=== PATIENT | female | born 1975 | race Caucasian/White ===

== ENCOUNTER 2023-03-07 19:28 | Emergency (ER) | payer OTHER, SELFPAY ==
--- NOTE | ~2023-03-07 | XR_ITS ---
EXAMINATION: XR FOOT, LEFT CLINICAL INFORMATION: Great toe and second toe pain COMPARISON: None available. TECHNIQUE: AP, lateral, and oblique views of the left foot. FINDINGS: There is no fracture or dislocation. Alignment maintained throughout the foot. The soft tissues are unremarkable. Chronic healed fifth metatarsal fracture. Achilles heel spur noted. XR/XR foot LT min 3V IMPRESSION: No acute fracture or malalignment. Chronic healed fifth metatarsal fracture.
[2023-03-07 20:35] VITALS: BP 147/98; PULSE 105; RESP 20; TEMP 36.3; O2SAT 97; BMI 23.0
--- NOTE | 2023-03-07 20:37 | ED.LOWEXIN ---
HPI - Extremity Injury (Lower) General Chief Complaint: Extremity Injury, Lower <TARA Hart - Last Filed: 03/07/23 20:40> Stated Complaint: ?L Foot infection <TARA Hart - Last Filed: 03/07/23 20:40> Time Seen by Provider: 03/07/23 23:49 <TARA Hart - Last Filed: 03/07/23 20:40> Source: patient, RN notes reviewed and old records reviewed <Marlon Alvarez - Last Filed: 03/08/23 00:16> Mode of arrival: ambulatory <Marlon Alvarez - Last Filed: 03/08/23 00:16> Limitations: no limitations <Marlon Alvarez - Last Filed: 03/08/23 00:16> History of Present Illness HPI Narrative: 48-year-old female with past medical history significant for liver cirrhosis presents for evaluation of left foot pain Patient reports that 1 week ago she got a pedicure and ?they were digging around my nail and cut the big toe. She reports that she initially had some pain around the nail bed which progressed towards the foot She states the pain by the nail bed has somewhat improved now she is having pain mostly in the foot in between the 1st and 2nd toes on the right side Denies any fevers or chills. The patient is not a diabetic <Marlon Alvarez - Last Filed: 03/08/23 00:16> Related Data Home Medications: Previous Rx's Medication Instructions Recorded cephalexin 500 mg capsule 500 mg PO TID #21 caps 03/08/23 tramadol 50 mg tablet 50 mg PO TID PRN severe pain 03/08/23 (scale score 7-10) #12 tabs <TARA Hart - Last Filed: 03/07/23 20:40> Allergies/Adverse Reactions: Allergies Allergy/AdvReac Type Severity Reaction Status Date / Time No Known Allergies Allergy Unverified 07/27/20 15:51 <TARA Hart Last Filed: 03/07/23 20:40> Review of Systems Constitutional: Constitutional: Denies chills and Denies fever(s) <Marlon Alvarez - Last Filed: 03/08/23 00:16> Musculoskeletal: Musculoskeletal: Reports arthralgias and Reports joint swelling <Marlon Chay - Last Filed: 03/08/23 00:16> Integumentary/Breasts: Skin/Breast: Denies rash <Marlon VangOglethorpe - Last Filed: 03/08/23 00:16> Physical Exam Vital Signs: Vital Signs: Last Vital Signs Temp 97.4 F 03/07/23 20:35 Pulse 105 H 03/07/23 20:35 Resp 20 03/07/23 20:35 BP 147/98 H 03/07/23 20:35 Pulse Ox 97 03/07/23 20:35 O2 Del Method Room Air 03/07/23 20:35 BMI result Body Mass Index 23.0 <TARA Hart - Last Filed: 03/07/23 20:40> Vital Signs: Last Vital Signs Temp 97.4 F 03/07/23 20:35 Pulse 105 H 03/07/23 20:35 Resp 20 03/07/23 20:35 BP 147/98 H 03/07/23 20:35 Pulse Ox 97 03/07/23 20:35 O2 Del Method Room Air 03/07/23 20:35 BMI result Body Mass Index 23.0 <Marlon Chay - Last Filed: 03/08/23 00:16> Const: General: healthy appearing, comfortable, no acute distress, alert and awake <Marlon Chay - Last Filed: 03/08/23 00:16> Nutritional Appearance: well nourished <Marlon OOglethorpe - Last Filed: 03/08/23 00:16> Orientation/consciousness: patient oriented x3 <Marlon O - Last Filed: 03/08/23 00:16> Eyes: Eyelids: Yes eyelids normal <Marlon OOglethorpe - Last Filed: 03/08/23 00:16> Conjunctivae: conjunctivae normal <Marlon OSchuyler - Last Filed: 03/08/23 00:16> Sclerae: sclerae normal <Marlon Vang - Last Filed: 03/08/23 00:16> Corneas: corneas normal <Marlon VangOglethorpe - Last Filed: 03/08/23 00:16> Pupils: Equal, round and reactive pupils present <Marlon Chay - Last Filed: 03/08/23 00:16> EOM: EOMs intact bilaterally <Marlon OOglethorpe - Last Filed: 03/08/23 00:16> Resp: Effort & Inspection: normal respiratory effort, able to speak in complete sentences and not labored <Marlon OOglethorpe - Last Filed: 03/08/23 00:16> Skin: General skin exam: no rashes or lesions noted and elasticity normal <Marlon OOglethorpe - Last Filed: 03/08/23 00:16> Neuro: General: patient oriented x3 <Marlon O Last Filed: 03/08/23 00:16> Cranial nerves: Yes CN's II-XII intact bilaterally, Yes Equal, round and reactive pupils present and Yes Bilaterally intact EOM present <Marlon OOglethorpe - Last Filed: 03/08/23 00:16> Cognition (Neuro): normal cognition <Marlon OOglethorpe - Last Filed: 03/08/23 00:16> Extrem: Other: Patient has mild erythema to the lateral side of the right 1st toe. There is some tenderness extending proximally without significant edema. No lacerations, open wounds <Marlon VangSchuyler - Last Filed: 03/08/23 00:16> Course Course Course Narrative: RME: 48 yo F w/no sig PMHx c/o L great toe & 2nd toe pain radiating to foot s/p aggressive pedicure 1 week ago. +swelling & ttp to distal L foot. Toes nontender. NV intact. No erythema/warmth X-rays ordered Full HPI, ROS and PE to be performed by primary ED provider. <TARA Hart - Last Filed: 03/07/23 20:40> Medical Decision Making Medical Decision Making MDM Narrative: For 8-year-old female presents for evaluation of left foot pain after a pedicure a week ago. She has mild erythema and tenderness without significant edema or evidence of paronychia. X-rays negative for fracture. Will treat with cephalexin for 7 days and tramadol. The patient reports she cannot take ibuprofen or Tylenol <Marlongreer Alvarez - Last Filed: 03/08/23 00:16> Differential Diagnosis Cellulitis Paronychia Foot pain Foot fracture <Marlon Alvarez - Last Filed: 03/08/23 00:16> Discharge Plan Discharge Clinical Impression: Acute pain of left foot <TARA Hart - Last Filed: 03/07/23 20:40> Patient Disposition: Home, Self-Care <TARA Hart - Last Filed: 03/07/23 20:40> Instructions: Cellulitis (ED) <TARA Hart - Last Filed: 03/07/23 20:40> Additional Instructions: Your x-rays did not show any evidence of fracture Your pain is most likely related to a developing skin infection from the pedicure For this reason take cephalexin 3 times daily for the next 7 days You may also use warm compresses and warm water soaks You may use tramadol for severe or breakthrough pain This may make you sleepy, did not drink alcohol or drive after taking <TARA Hart - Last Filed: 03/07/23 20:40> Prescriptions: New cephalexin 500 mg capsule 500 mg PO TID Qty: 21 0RF tramadol 50 mg tablet 50 mg PO TID PRN (Reason: severe pain (scale score 7-10)) Qty: 12 0RF <TARA Hart - Last Filed: 03/07/23 20:40>
== END 2023-03-08 00:29 | disposition home or self-care (01) ==
PROVIDERS: Emergency Provider Emergency Medicine; PCP Internal Medicine
DX: M79.672 Pain in left foot (principal)
CPT/HCPCS: 73630; 99282; 99283

== ENCOUNTER 2023-03-27 12:28 | Emergency (ER) | payer OTHER, SELFPAY ==
--- NOTE | ~2023-03-27 | XR_ITS ---
EXAMINATION: XR FOOT, LEFT CLINICAL INFORMATION: Pain. COMPARISON: None available. TECHNIQUE: AP, lateral, and oblique views of the left foot. FINDINGS: There is a old healed fracture mid second metatarsal with callus formation and periosteal thickening. No acute fracture, dislocation subluxation seen. The soft tissues are normal. The ankle mortise and subtalar joints are normal. Moderate size retrocalcaneal enthesophyte. XR/XR foot LT 2V IMPRESSION: Healing fracture second metatarsal midsegment. Moderate size retrocalcaneal enthesophyte.
--- NOTE | ~2023-03-27 | US_ITS ---
EXAMINATION: US VENOUS ULTRASOUND WITH DOPPLER LOWER EXTREMITY, LEFT CLINICAL INFORMATION: Left lower extremity pain. Assess for occult DVT. COMPARISON: None available. TECHNIQUE: Ultrasound of the deep veins is performed from the hip to the calf with compression sonography and color and pulse Doppler assessment. Spectral analysis with color-flow imaging is performed. FINDINGS: There is normal venous compression and respiratory variation and augmented flow. The visualized common femoral vein, superficial femoral vein, profunda femoral vein, popliteal vein, and the trifurcation region shows no evidence of deep venous thrombosis. Peroneal vein not visualized. No visible thrombus. No popliteal fossa cyst. US/US venous duplex LE LT IMPRESSION: -No DVT demonstrated in the left lower extremity. -If patient's symptoms persist, followup ultrasound in 5 days 7 days might be of value to exclude proximal propagation from non-visualized calf vein.
[2023-03-27 12:38] VITALS: BP 112/77; PULSE 78; RESP 20; TEMP 36.9; O2SAT 98; BMI 25.0
--- NOTE | 2023-03-27 12:38 | ED.GENADULT ---
HPI - General Adult General Chief complaint: Skin/Abscess/Foreign Body Stated complaint: cellulitis Time Seen by Provider: 03/27/23 14:01 Source: patient Mode of arrival: ambulatory Limitations: no limitations History of Present Illness HPI narrative: A 48-year-old female came in for evaluation of left foot pain for 3 weeks. Pain started about 3 weeks ago after having a pedicure work done on the left foot, patient had a multiple ED and clinic visits for treating cellulitis started with 7 days course of Keflex when pain persist patient was evaluated by [facility] ED and was discharged on doxycycline and cefuroxime, patient declined any history of IV abuse, no recent travel, no recent trauma to the foot except for recent foot pedicure. No fever, no chills just pain to the top of the left foot. Related Data Previous Rx's Medication Instructions Recorded cephalexin 500 mg capsule 500 mg PO TID #21 caps 03/08/23 tramadol 50 mg tablet 50 mg PO TID PRN severe pain 03/08/23 (scale score 7-10) #12 tabs hydromorphone 2 mg tablet 2 mg PO Q4H PRN pain #14 tabs 03/27/23 Allergies Allergy/AdvReac Type Severity Reaction Status Date / Time No Known Allergies Allergy Unverified 07/27/20 15:51 Review of Systems Review of Systems: All other systems are reviewed and are negative Constitutional: Reports as per HPI and Reports no additional constitutional complaints Eyes: Reports as per HPI and Reports no additional eye complaints Reports system reviewed and no additional complaints, except as documented Cardiovascular: Reports as per HPI and Reports no additional cardiovascular complaints Respiratory: Reports as per HPI and Reports no additional respiratory complaints Gastrointestinal: Reports as per HPI and Reports no additional gastrointestinal complaints Genitourinary: Reports no additional female genitourinary complaints Musculoskeletal: Reports no additional musculoskeletal complaints Skin/Breast: Reports system reviewed and no additional complaints, except as docu Psychiatric: Reports no additional psychiatric complaints Endocrine: Reports no additional endocrine complaints Hematologic/Lymphatic: Reports no additional hematologic/lymphatic complaints Allergic/Immunologic: Reports no additional allergic/immunologic complaints Reports system reviewed and no additional complaints, except as documented and Reports Abnormal speech present [facility] Social History Social History Alcohol intake: current Alcohol intake frequency: holidays/special occasions only Smoked in Last 30 Days: No Use of substances other than those prescribed or required for medical reasons: No Advance Directives: No Advance Directives Information Provided: Yes Physical Exam ED Vital Signs: Vital Signs - 24 hr 03/27/23 12:38 03/27/23 13:59 Temperature 98.5 F 97.9 F Pulse Rate 78 77 Respiratory Rate 20 16 Blood Pressure 112/77 116/72 Pulse Oximetry 98 99 Oxygen Delivery Method Room Air Room Air BMI result Body Mass Index 25.0 Vital signs have been reviewed as appeared to be correct. Blood pressure normal. Heart rate normal. Respiration rate normal. Temperature normal. Oxygen saturation normal. Appearance: Alert. Oriented X3. No acute distress. Head: Normal external exam. Normocephalic. Atraumatic. No Alexis signs noted. No raccoon eyes noted Eyes: PERRLA. EOMI. Conjunctiva and sclera normal. Eyelids normal. ENT: TM's Normal. Pharynx normal. Uvula midline. Moist mucous membranes. No trismus noted. No drooling noted. No muffled voice noted. Neck: Normal inspection. Neck supple. FROM. No adenopathy. Thyroid Normal. No meningeal signs. No neck mass noted. CVS: Normal heart rate and rhythm. Heart sound normal. No murmurs noted. Pulses normal throughout. Respiratory: No respiratory distress. Painless inspiration. Breath sounds normal. No wheezes/rales/rhonchi noted. Chest nontender. No accessory muscle usage noted or decreased air movement noted. Abdomen: Soft and nontender. Bowel sounds normal in all 4 quadrants. No distention noted. No organomegaly noted. No visible injury noted. Back: No CVA tenderness. Full range of motion noted. Skin: Skin warm and dry. Normal skin color. Normal skin turgor. No rashes/lesions/lacerations noted. Extremities: Left foot exam: No deformity, no step-off, no redness, no hotness, very sensitive to touch on the dorsum of the midfoot, left PT/DP pulse intact, rest of neurovascular exam is intact. Neuro: Oriented X 3. Cranial nerve exam: II-XII are grossly intact No motor deficit. No sensory deficit. Reflexes normal. Course Course Course Narrative: This is an RME: Additional HPI, ROS, PE not included below will be deferred to primary provider. 48 year old female presents w/ worsening l foot cellulitis despite two rounds of antibiotics. First round she took cephalexin, then was prescribed doxycyline with sonething else. Despite this cellulitis worsening. Plan- labs Reevaluation(s) Reevaluation #1: Patient is complaining of burning sensation to 3 x 5 cm area on the dorsum of the left foot at the bases of the toes, patient was given oxycodone in the emergency department and she was taking gabapentin with no relief, patient has no concerns of cellulitis especially with normal WBCs and the nature of the pain is burning sensation more like peripheral neuropathy, patient got good relief from Dilaudid will discharge home with Dilaudid and follow-up with neurology. Time: 16:56 Medications Administered Discontinued Medications Generic Name Dose Route Start Last Admin Trade Name Freq PRN Reason Stop Dose Admin Gabapentin 900 mg 03/27/23 16:05 03/27/23 16:17 Gabapentin 300 Mg Capsule PO 03/27/23 16:06 Not Given ONCE ONE Oxycodone HCl 10 mg 03/27/23 14:08 03/27/23 14:40 Oxycodone Hcl Immed Release 5 Mg Tablet PO 03/27/23 14:09 10 mg ONCE ONE Administration Medical Decision Making Differential Diagnosis Differential Diagnoses: The differential diagnosis associated with the presentation includes (Left foot fracture, left foot cellulitis, left lower extremities DVT, severe anemia, electrolyte abnormalities.) Admission/Observation Consideration of admission/observation: Escalation of care including admission/observation considered Lab Data MDM Lab Attestation statement: I reviewed the patient's lab results. 03/27/23 12:57 03/27/23 12:57 Labs: Lab Results 03/27/23 03/27/23 Range/Units 12:57 12:57 WBC 7.1 (4.8-10.8) X10*3/uL RBC 4.38 (4.20-5.50) X10*6/uL Hgb 11.1 L (12.0-16.0) g/dl Hct 35.8 L (37.0-47.0) % MCV 81.7 (80.0-98.0) fL MCH 25.3 L (27.0-33.0) pg MCHC 31.0 (31.0-35.0) g/dl RDW 17.3 H (11.0-16.0) % Plt Count 161 (160-400) X10*3/uL MPV 10.0 (9.4-12.3) fL Immature Gran % (Auto) 0.1 (0.0-0.4) % Neut % (Auto) 52.3 (45-73) % Lymph % (Auto) 35.3 (20-40) % Potter % (Auto) 8.9 (2-11) % Eos % (Auto) 2.3 (0-4) % Baso % (Auto) 1.1 (0-2) % Lymph # (Auto) 2.5 (1.2-4.9) X10*3/uL Potter # (Auto) 0.6 (0.1-1.2) X10*3/uL Eos # (Auto) 0.2 (0.0-0.4) X10*3/uL Baso # (Auto) 0.1 (0.0-0.2) X10*3/uL Abs Immat Gran (auto) 0.01 (0.00-0.03) X10*3/uL Absolute Neuts (auto) 3.7 (2.0-8.3) x10*3/uL Absolute Nucleated RBC 0.000 (0.0-0.012) X10*3/uL Nucleated RBC % (auto) 0.0 (0.0-0.2) /100WBC Sodium 140 (135-145) mmol/L Potassium 4.1 (3.3-5.1) mmol/L Chloride 105 (96-108) mmol/L Carbon Dioxide 23 (22-29) mmol/L Anion Gap 16 (12-20) BUN 13 (9-16) mg/dL Creatinine 1.00 (0.5-1.4) mg/dL Estim Creat Clear Calc 61.2 Estimated GFR 59 Random Glucose 81 (60-115) mg/dL Calcium 9.2 (8.4-10.2) mg/dL Magnesium 1.7 (1.6-2.6) mg/dL Total Bilirubin 0.3 (0.0-1.0) mg/dL AST 37 H (5-31) U/L ALT 23 (0-31) U/L Alkaline Phosphatase 186 H (39-117) U/L Total Protein 7.3 (6.5-8.0) g/dL Albumin 4.0 (3.5-5.0) g/dL Beta HCG, Quant < 2 mIU/mL Independent Interpretation I performed an independent interpretation of an: Plain X-Ray (Left foot: No acute fracture or dislocation.) and Ultrasound (Left lower extremities ultrasound: No DVT.) Radiology Impression Discussion of test interpretation with radiology: I have reviewed the radiologist's reading. Discharge Plan Discharge Clinical Impression: Peripheral neuropathy Patient Disposition: Home, Self-Care Instructions: Peripheral Neuropathy (ED) Prescriptions: New hydromorphone 2 mg tablet 2 mg PO Q4H PRN (Reason: pain) Qty: 14 0RF Rx Instructions: Partial Fill upon patient request. No Action cephalexin 500 mg capsule 500 mg PO TID Qty: 21 0RF tramadol 50 mg tablet 50 mg PO TID PRN (Reason: severe pain (scale score 7-10)) Qty: 12 0RF Referrals: Veda Marcano MD [Physician] - Theresa Nichols MD [Primary Care Provider] - Stand Alone Forms: Work/School Release
[2023-03-27 13:03] LABS: MANUAL DIFF FLAG NO
[2023-03-27 13:05] LABS: Basophils Absolute Auto 0.1 X10*3/uL (0.0-0.2); Basophils Percent Auto 1.1 % (0-2); Eosinophils Absolute Auto 0.2 X10*3/uL (0.0-0.4); Eosinophils Percent Auto 2.3 % (0-4); Hematocrit 35.8 % (37.0-47.0); Hemoglobin 11.1 g/dl (12.0-16.0); Imm Gran Abs Auto 0.01 X10*3/uL (0.00-0.03); Imm Gran Pct Auto 0.1 % (0.0-0.4); Lymphocytes Absolute Auto 2.5 X10*3/uL (1.2-4.9); Lymphocytes Percent Auto 35.3 % (20-40); Mean Corpuscular Hemoglobin 25.3 pg (27.0-33.0); Mean Corpuscular Volume 81.7 fL (80.0-98.0); Monocytes Absolute Auto 0.6 X10*3/uL (0.1-1.2); Monocytes Percent Auto 8.9 % (2-11); Neutrophils Absolute Auto 3.7 x10*3/uL (2.0-8.3); Neutrophils Percent Auto 52.3 % (45-73); Platelet Count 161 X10*3/uL (160-400); Red Blood Count 4.38 X10*6/uL (4.20-5.50); Red Cell Distribution Width 17.3 % (11.0-16.0); White Blood Count 7.1 X10*3/uL (4.8-10.8)
[2023-03-27 13:21] LABS: Alanine Aminotransferase 23 U/L (0-31); Alkaline Phosphatase 186 U/L (39-117); Anion Gap 16 (12-20); Aspartate Amino Transferase 37 U/L (5-31); Bilirubin Total 0.3 mg/dL (0.0-1.0); Blood Urea Nitrogen 13 mg/dL (9-16); Calcium 9.2 mg/dL (8.4-10.2); Carbon Dioxide 23 mmol/L (22-29); Chloride 105 mmol/L (96-108); Creatinine Clr Calc Pharmacy 61.2; Estimated Glomerular Filt Rate 59; Glucose Random 81 mg/dL (60-115); Magnesium 1.7 mg/dL (1.6-2.6); Potassium 4.1 mmol/L (3.3-5.1); Sodium 140 mmol/L (135-145); Total Protein 7.3 g/dL (6.5-8.0)
[2023-03-27 13:59] VITALS: BP 116/72; PULSE 77; RESP 16; TEMP 36.6; O2SAT 99
[2023-03-27 14:13] LABS: HCG Quantitative < 2 mIU/mL
[2023-03-27] MEDS: oxyCODONE HCl Immed Release 5 MG TABLET 10 MG PO (14:40)
--- NOTE | 2023-03-27 15:06 | PC.NURSE ---
Report received from RIVERA Low Pt is resting comfortably with family member at bedside, reporting no pain at this time. Provided with [place] per pt request
[2023-03-27] MEDS: Ketorolac Tromethamine 30 MG/ML VIAL IM (17:00)
[2023-03-27] MEDS: HYDROmorphone HCl 2 MG/ML VIAL IM (17:01)
== END 2023-03-27 17:56 | disposition home or self-care (01) ==
PROVIDERS: Physician Assistant; Emergency Provider Emergency Medicine; PCP Internal Medicine
DX: G62.9 Polyneuropathy, unspecified (principal); M79.672 Pain in left foot
CPT/HCPCS: 36415; 73620; 80053; 83735; 84702; 85025; 93971; 96372; 99284; J1170; J1885

== ENCOUNTER 2023-06-08 16:14 | Emergency (ER) | payer OTHER, SELFPAY ==
--- NOTE | ~2023-06-08 | XR_ITS ---
EXAMINATION: XR ribs LT min 3V w CXR1V CLINICAL INFORMATION: Reason for Exam fall, pain COMPARISON: Chest radiograph 10/13/2017 TECHNIQUE: 3 views of the Left ribs. 1 view of the chest. FINDINGS: Cervical fusion hardware. Right upper quadrant cholecystectomy clips. Subtle irregularity of the posterior ninth rib and anterior seventh left ribs, equivocal subtle nondisplaced fractures, recommend correlation with point tenderness. Clear lungs. No pneumothorax. No pleural effusion. Normal cardiomediastinal silhouette. XR/XR ribs LT min 3V w CXR1V IMPRESSION: 1. Subtle irregularity of the posterior ninth rib and anterior seventh left ribs, equivocal subtle nondisplaced fractures, recommend correlation with point tenderness. 2. Clear lungs. No pneumothorax.
--- NOTE | 2023-06-08 16:18 | ED.FALL ---
HPI - Fall General Chief Complaint: Extremity Injury, Upper Stated Complaint: fell on rocks/hurt back Time Seen by Provider: 06/08/23 16:48 Source: patient and RN notes reviewed Mode of arrival: ambulatory Limitations: no limitations History of Present Illness HPI Narrative: This is a 48-year-old female presenting to the emergency department for evaluation of left rib pain since today. Patient reports that she was walking on rocks and she tripped and fell on her left side. She denies hitting her head or loss of consciousness. She has had severe left-sided rib pain since the fall. Denies dizziness, blurred vision, headaches, weakness. She states pain worsening with deep inspiration and with palpation over her left ribs. She has a history of multiple pneumothoraces and rib fractures. She denies taking any medications at home to treat her current symptoms. No other complaints or concerns at this time. complaint: fall Onset (ago): hour(s) Fall from: standing Fall witnessed: yes, by family Place fall occurred: street Loss of consciousness: none Prolonged down time: no Symptoms prior to fall: none Context: tripped/slipped Severity: moderate Quality: sharp Associated symptoms (after fall): denies Related Data Previous Rx's Medication Instructions Recorded cephalexin 500 mg capsule 500 mg PO TID #21 caps 03/08/23 tramadol 50 mg tablet 50 mg PO TID PRN severe pain 03/08/23 (scale score 7-10) #12 tabs hydromorphone 2 mg tablet 2 mg PO Q4H PRN pain #14 tabs 03/27/23 acetaminophen 325 mg capsule 650 mg PO Q6H PRN pain #45 caps 06/08/23 (Tylenol) ibuprofen 600 mg tablet 600 mg PO Q6H PRN pain #45 tabs 06/08/23 oxycodone 5 mg tablet 5 mg PO Q6H PRN pain #7 tabs 06/08/23 Allergies Allergy/AdvReac Type Severity Reaction Status Date / Time No Known Allergies Allergy Verified 06/08/23 16:18 Review of Systems Review of Systems: Yes all other systems are reviewed and are negative Constitutional: Constitutional: Reports as per [facility] Social History Social History Alcohol intake: current Alcohol intake frequency: holidays/special occasions only Advance Directives: No Advance Directives Information Provided: Yes Physical Exam Vital Signs: Vital Signs: Last Vital Signs Temp 98 F 06/08/23 18:53 Pulse 70 06/08/23 18:53 Resp 18 06/08/23 18:53 BP 129/68 06/08/23 18:53 Pulse Ox 99 06/08/23 18:53 O2 Del Method Room Air 06/08/23 18:53 BMI result Body Mass Index 29.0 Const: Other: Patient nontoxic appearing however appears uncomfortable, grabbing at left side. General: cooperative Orientation/consciousness: patient oriented x3 Limitations: no limitations HEENT: Head: Yes normal to inspection, Yes normocephalic and Yes atraumatic Ears: hearing grossly normal bilaterally General nose exam: Normal external nose present Face and sinus: Yes normal facial exam Mouth: Normal oral and palatal mucosa present, oropharynx normal and moist mucous membranes Throat: Yes posterior oropharynx normal Eyes: General: appearance normal, both eyes and all related structures Eyelids: Yes eyelids normal Conjunctivae: conjunctivae normal Sclerae: sclerae normal Pupils: Equal, round and reactive pupils present EOM: EOMs intact bilaterally Neck: Other: No midline cervical spine tenderness to palpation. No midline lumbar or thoracic spine tenderness. Neck: Yes normal visual inspection, Yes full ROM and Yes no lymphadenopathy Lymphatic: no lymphadenopathy noted Chest: Other: Tenderness to palpation along the left anterior and posterior chest wall. Chest palpation & inspection: normal inspection of the chest Resp: Effort & Inspection: normal respiratory effort and able to speak in complete sentences Auscultation: clear to auscultation bilaterally, no crackles, no rales, no rhonchi and no wheezes Cardio: Rate: regular rate Rhythm: regular rhythm Heart sounds: S1 normal heart sound present and S2 normal heart sound present GI: Other: Abdomen is soft, nontender, nondistended, no ecchymosis seen. Inspection: Yes normal to inspection Skin: General skin exam: no rashes or lesions noted Trauma: no lacerations or abrasions Wounds: no wounds Neuro: General: patient oriented x3 and moves all extremities Cranial nerves: Yes Equal, round and reactive pupils present Extrem: Other: Left shoulder without any point tenderness to palpation. No step-off or deformity. Patient has the ingestion of the left shoulder. Radial pulses 2+ General: Yes normal to inspection Right upper extremity: normal to inspection Left upper extremity: normal to inspection Right lower extremity: normal to inspection Left lower extremity: normal to inspection Course Course Course Narrative: This was a rapid medical exam. Deferred additional HPI, ROS, PE to primary provider. 48 yo female with past medical history of liver cirrhosis here with complaints of trip and fall on the rocks hitting left ribs on the rock. Denies hitting head or LOC. Worsened with movement/breathing. Will obtain x-rays of left ribs. VSS Reevaluation(s) Reevaluation #1: Rib x-ray was obtained showing subtle irregularity of the posterior 9th rib anterior 7th rib. Likely nondisplaced fractures given mechanism. Patient's lungs are clear to auscultation bilaterally. Patient has no abdominal tenderness or ecchymosis present. Patient has no step-off or deformity. Given 2 nondisplaced rib fractures, patient not having any abdominal pain, lungs clear to auscultation bilaterally additional imaging not work at this time. Will treat with pain medication. Patient medicated and department with oxycodone 10 mg by mouth given severity of pain. Patient given incentive spirometer for prevention of pneumonia. Given small course of oxycodone to only be taken for severe pain only. Patient advised that this is not a medication we can refill from the ER. Patient understands. Patient given strict return precautions if any new or worsening symptoms occur. Patient understands and agrees with plan. Patient stable for discharge. Time: 19:14 Medications Administered Discontinued Medications Generic Name Dose Route Start Last Admin Trade Name Freq PRN Reason Stop Dose Admin Ketorolac Tromethamine 30 mg 06/08/23 17:53 06/08/23 17:56 Ketorolac Tromethamine 30 Mg/Ml Vial IM 06/08/23 17:54 30 mg ONCE ONE Administration Oxycodone HCl 10 mg 06/08/23 18:48 06/08/23 18:51 Oxycodone Hcl Immed Release 5 Mg Tablet PO 06/08/23 18:49 10 mg ONCE ONE Administration Medical Decision Making Medical Decision Making [facility] Narrative: 48-year-old female presenting to the emergency department for evaluation of left rib pain status post mechanical fall which occurred today. On examination, vital signs within normal limits. Patient of appears uncomfortable secondary to pain. On examination tenderness to palpation along her left posterior ribs. Lungs are clear to auscultation bilaterally. Given presentation and mechanism, differential diagnoses include rib fracture, pneumothorax, rib contusion. Will medicate with Toradol 30 mg IM. Left rib x-ray with PA chest obtained. Pt had no LOC, not on blood thinners - patient has no headache, dizziness, blurred vision, further diagnostic imaging of the head and neck not necessary as patient did not lose consciousness and is feeling well other than her left-sided rib pain. Differential Diagnosis Differential Diagnoses: The differential diagnosis associated with the presentation includes Rib fracture, pneumothorax, rib contusion Independent Interpretation I performed an independent interpretation of an: Plain X-Ray Interpretation: Review of x-rays was performed by me, I agree with the radiology report. No pneumothorax. Radiology Impression Discussion of test interpretation with radiology: I have reviewed the radiologist's reading. Radiologist Impression: EXAMINATION: XR ribs LT min 3V w CXR1V CLINICAL INFORMATION: Reason for Exam fall, pain COMPARISON: Chest radiograph? 10/13/2017 TECHNIQUE: 3 views of the Left ribs.? 1 view of the chest. FINDINGS: Cervical fusion hardware. Right upper quadrant cholecystectomy clips. Subtle irregularity of the posterior ninth rib and anterior seventh left ribs, equivocal subtle nondisplaced fractures, recommend correlation with point tenderness. Clear lungs. No pneumothorax. No pleural effusion. Normal cardiomediastinal silhouette. XR/XR ribs LT min 3V w CXR1V IMPRESSION: 1.? Subtle irregularity of the posterior ninth rib and anterior seventh left ribs, equivocal subtle nondisplaced fractures, recommend correlation with point tenderness. 2.? Clear lungs. No pneumothorax. ? Dictated By: Marilin Basilio MD Signed By: <Electronically signed by Marilin Basilio MD in OV> 06/08/23 1821 DD/ 1714 TD/TT:? Research Laboratory Manager: External Record Review External record reviewed: Inpatient record, Office record, Outpatient record, Prior outpatient labs, Prior outpatient radiology, Primary care record and Outside ED record Discharge Plan Discharge Clinical Impression: Fracture, ribs Patient Disposition: Home, Self-Care Instructions: Rib Fracture (ED) Additional Instructions: You have subtle irregularities of the 9th and 7th rib which could nondisplaced fractures. There is no evidence of pneumothorax today. Please rest, ice, and take prescribed medication as directed. Please use incentive spirometer to prevent pneumonia. If any new or worsening symptoms occur, including but not limited to shortness of breath, worsening chest pain, or any other symptoms please return for re-evaluation. I am prescribing you a narcotic, oxycodone, this is to be only taken for severe pain only. This may cause drowsiness, do not drink alcohol or drive while taking this. We were unable to refill this medication from the emergency department. Please follow-up with your primary care physician if he needs more pain medication. Take ibuprofen and Tylenol as directed Prescriptions: New ibuprofen 600 mg tablet 600 mg PO Q6H PRN (Reason: pain) Qty: 45 0RF acetaminophen [Tylenol] 325 mg capsule 650 mg PO Q6H PRN (Reason: pain) Qty: 45 0RF oxycodone 5 mg tablet 5 mg PO Q6H PRN (Reason: pain) Qty: 7 0RF Rx Instructions: Partial Fill upon patient request. No Action cephalexin 500 mg capsule 500 mg PO TID Qty: 21 0RF tramadol 50 mg tablet 50 mg PO TID PRN (Reason: severe pain (scale score 7-10)) Qty: 12 0RF hydromorphone 2 mg tablet 2 mg PO Q4H PRN (Reason: pain) Qty: 14 0RF Rx Instructions: Partial Fill upon patient request. Interventions: ED Discharge Assessment Last Done: 06/08/23 18:59 Discharge Date/Time: 06/08/23 19:00
[2023-06-08 16:19] VITALS: BP 137/98; PULSE 104; RESP 20; TEMP 36.2; O2SAT 98; BMI 29.0
[2023-06-08] MEDS: Ketorolac Tromethamine 30 MG/ML VIAL IM (17:56)
--- NOTE | 2023-06-08 18:04 | PC.NURSE ---
aox4. calm, cooperative. reports pain to upper left rib...under collar bone. no signs of ecchymosis, abrasions, skin tear, or overt trauma. administered IM pain med per mar. tolerated well.
[2023-06-08] MEDS: oxyCODONE HCl Immed Release 5 MG TABLET 10 MG PO (18:51)
[2023-06-08 18:53] VITALS: BP 129/68; PULSE 70; RESP 18; TEMP 36.6; O2SAT 99
== END 2023-06-08 19:00 | disposition home or self-care (01) ==
PROVIDERS: Emergency Provider Internal Medicine; PCP Internal Medicine
DX: S22.42XA Multiple fractures of ribs, left side, initial encounter for closed fracture (principal); R07.81 Pleurodynia; W01.10XA Fall on same level from slipping, tripping and stumbling with subsequent striking against unspecified object, initial encounter; Y93.9 Activity, unspecified; Y92.9 Unspecified place or not applicable; Y99.9 Unspecified external cause status; Z79.899 Other long term (current) drug therapy
CPT/HCPCS: 71101; 96372; 99284; J1885